=== PATIENT | female | born 1995 | race Caucasian/White ===

== ENCOUNTER → 2022-10-20 | Day surgery (SDC) | payer OTHER | LOC: SDC/OP 13:53 | PROVIDERS: ATTEND Student in an Organized Health Care Education/Training Program | DX: O99.019 Anemia complicating pregnancy, unspecified trimester (principal); Z88.0 Allergy status to penicillin; Z88.5 Allergy status to narcotic agent; Z88.7 Allergy status to serum and vaccine; Z91.013 Allergy to seafood; Z91.040 Latex allergy status ==